=== PATIENT | female | born 1950 | race Caucasian/White ===

== ENCOUNTER → 2017-05-02 | Outpatient (CLI) | payer MEDICARE, BC ==
[2014-10-09 14:59] VITALS: BP 148/84
--- NOTE | 2017-05-02 10:22 | RAD ---
DATE: 05/02/2017 EXAM: MAMMO SILVER SCREENING BILATERAL HISTORY: Routine screening COMPARISON: 2015 The breast parenchyma shows scattered fibroglandular densities. Breast parenchyma level B. FINDINGS: 2-D and 3-D tomosynthesis imaging was performed in CC and MLO projections. No new or enlarging breast densities are seen. A benign-appearing lymph node type densities again noted in the axillary tail region of the right breast. Minimal benign type calcifications are present. No suspicious microcalcifications have developed. IMPRESSION: Stable mammograms without evidence of malignancy. BI-RADS CATEGORY: 2 BENIGN FINDING(S) RECOMMENDED FOLLOW-UP: 12M 12 MONTH FOLLOW-UP PQRS compliance statement: Patient information was entered into a reminder system with a target due date for the next mammogram. Mammography is a sensitive method for finding small breast cancers, but it does not detect them all and is not a substitute for careful clinical examination. A negative mammogram does not negate a clinically suspicious finding and should not result in delay in biopsying a clinically suspicious abnormality. "Our facility is accredited by the [employer] Mammography [employer]."
== END | disposition home or self-care (01) ==
LOC: KCIC MAMMO 07:47
PROVIDERS: ATTEND Obstetrics & Gynecology
DX: Z12.31 Encounter for screening mammogram for malignant neoplasm of breast (principal)
CPT/HCPCS: 77063; G0202; 77067

== ENCOUNTER → 2019-05-19 | Outpatient (CLI) | payer MEDICARE, BC ==
[2014-10-09 14:59] VITALS: BP 148/84
--- NOTE | 2019-05-19 14:05 | KCIC ---
EXAM: Bilateral digital screening mammogram with tomosynthesis. HISTORY: 68-year-old female presents for screening mammography. TECHNIQUE: Full-field digital craniocaudal and mediolateral oblique 2D and 3D tomosynthesis images of both breasts are obtained for evaluation. Computer aided detection with [employer] MedD software version 9.3 was applied. COMPARISON: 05/17/2018 and 05/02/2017 BREAST PARENCHYMAL DENSITY: Level B - Scattered fibroglandular densities. FINDINGS: There is no new suspicious mass, microcalcification or region of architectural distortion. IMPRESSION: BI-RADS Category 2: Benign finding(s). RECOMMENDATION: Annual mammography is recommended. If your mammogram demonstrates that you have dense breast tissue, which could hide abnormalities, and if you have other risk factors for breast cancer that have been identified, you might benefit from supplemental screening tests that may be suggested by your ordering physician. Dense breast tissue, in and of itself, is a relatively common condition. This information is not provided to cause undue concern, but rather to raise your awareness and to promote discussion with your physician regarding the presence of other risk factors, in addition to dense breast tissue. A report of your mammography results will be sent to you and your physician. You should contact your physician if you have any questions or concerns regarding this report. Mammography is a sensitive method for finding small breast cancers, but it does not detect them all and is not a substitute for careful clinical examination. A negative mammogram does not negate a clinically suspicious finding and should not result in delay in biopsying a clinically suspicious abnormality. PQRS compliance statement - Patient information was entered into a reminder system with a target due date for the next mammogram. "Our facility is accredited by the [employer] Mammography [employer]." Electronically signed by: Vandana Corona MD (05/19/2019 2:02 PM) [facility]
== END | disposition home or self-care (01) ==
LOC: KCIC MAMMO 11:10
PROVIDERS: ATTEND Obstetrics & Gynecology
DX: Z12.31 Encounter for screening mammogram for malignant neoplasm of breast (principal)
CPT/HCPCS: 77063; 77067

== ENCOUNTER 2019-08-29 21:25 | Emergency (ER) | payer MEDICARE, BC ==
[~2019-08-29] VITALS: Ht 154.9 cm; Wt 108.9 kg
[2019-08-29 21:45] VITALS: BP 182/89
--- NOTE | 2019-08-29 22:02 | PHYS DOC ---
Past Medical History Past Medical History: Asthma, High Cholesterol, Hypertension (VERONICA CORBETT APRN) Past Surgical History: Tonsillectomy (VERONICA CORBETT APRN) Alcohol Use: None Drug Use: None (VERONICA CORBETT APRN) Adult General Chief Complaint Chief Complaint: SORE THROAT HPI HPI Patient is a 68 year old female who presents with nasal drainage, dry throat, sore throat, dry cough since Sunday. Patient denies any pain at this time. Patient states she's been using cough syrup and a saline nasal spray. She does have a history of asthma and does have inhalers but does not have a nebulizer at home. She states that she feels like the illness has moved down into her chest. She states she does not have chest pain or chest tightness or shortness of breath. (VERONICA CORBETT APRN) Review of Systems Review of Systems HENT: nasal congestion or sore throat [] Respiratory: cough or denies shortness of breath [] All other systems were reviewed and found to be within normal limits, except as documented in this note. (VERONICA CORBETT APRN) Current Medications Current Medications Current Medications Medications (Trade) Dose Ordered Sig/Elver Start Time Stop Time Status Last Admin Dose Admin Prednisone (Prednisone) 50 mg 1X ONCE 08/29/19 22:15 08/29/19 22:16 DC 08/29/19 22:16 50 MG (JOHN MOREIRA DO) Allergies Allergies Allergies Coded Allergies Type Severity Reaction Last Updated Verified azithromycin Allergy Intermediate 10/09/14 Yes (JOHN MOREIRA DO) Physical Exam Physical Exam Constitutional: Well developed, well nourished, no acute distress, non-toxic appearance. [] HENT: Normocephalic, atraumatic, bilateral external ears normal, oropharynx moist, no oral exudates, nose normal. Post nasal drip. [] Eyes: PERRLA, EOMI, conjunctiva normal, no discharge. [] Neck: Normal range of motion, no tenderness, supple, no stridor. [] Cardiovascular:Heart rate regular rhythm, no murmur [] Lungs & Thorax: Bilateral upper breath sounds clear and diminished in lower lobes to auscultation [] Abdomen: Bowel sounds normal, soft, no tenderness, no masses, no pulsatile masses. [] Skin: Warm, dry, no erythema, no rash. [] Back: No tenderness, no CVA tenderness. [] Extremities: No tenderness, no cyanosis, no clubbing, ROM intact, no edema. [] Neurologic: Alert and oriented X 3, normal motor function, normal sensory function, no focal deficits noted. [] Psychologic: Affect normal, judgement normal, mood normal. [] (VERONICA CORBETT APRN) Current Patient Data Vital Signs Vital Signs Date Time Temp Pulse Resp B/P (MAP) Pulse Ox O2 Delivery O2 Flow Rate FiO2 08/29/19 21:45 98.8 96 22 182/89 (120) 95 Room Air 98.8 (JOHN MOREIRA DO) Lab Values Laboratory Tests Test 08/29/19 22:05 Influenza Type A Antigen Negative (NEGATIVE) Influenza Type B Antigen Negative (NEGATIVE) (JOHN MOREIRA DO) EKG EKG [] (VERONICA CORBETT APRN) Radiology/Procedures Radiology/Procedures [] (VERONICA CORBETT APRN) Course & Med Decision Making Course & Med Decision Making Lungs are clear in upper lobes and diminished in lower lobes. Bilateral tympanic side pearly white. Throat is pink without swelling or exudates and there is postnasal drip. Skin pink warm and dry. Speaks in full clear sentences. A mbulatory with a steady gait. Patient denies chest pain, shortness of breath, abdominal pain, nausea, vomiting, diarrhea, fever, dizziness, headache, LOC, weakness, numbness or tingling, visual changes. Chest xray read by Dr Moreira by no acute findings. (VERONICA CORBETT APRN) Dragon Disclaimer Dragon Disclaimer This electronic medical record was generated, in whole or in part, using a voice recognition dictation system. (VERONICA CORBETT APRN) Departure Departure Impression: Primary Impression: Sore throat Additional Impressions: Cough Nasal congestion Disposition: 01 HOME, SELF-CARE Condition: STABLE Referrals: JOHN ASHTON MD (PCP) Patient Instructions: Cough, Adult, Sore Throat Additional Instructions: Follow up with primary care provider. Take medications as prescribed. Take Tylenol for pain or fever. Drink plenty of fluids. Scripts Benzonatate (TESSALON PERLE) 100 Mg Capsule 1 CAP PO TID, #30 CAP Prov: VERONICA CORBETT GERMÁN 08/29/19 Methylprednisolone (MEDROL) 4 Mg Tab.ds.pk 1 PKG PO UD, #1 PKG Prov: VERONICA CORBETT [employer] 08/29/19 Doxycycline Hyclate (DOXYCYCLINE HYCLATE) 100 Mg Capsule 1 CAP PO BID for 10 Days, #20 CAP Prov: VERONICA CORBETT [employer] SPECIALIST 08/29/19 Attending Signature Attending Signature I have reviewed the PA/CRIMINALIST TECHNICIAN's note and plan of care. I was available for consultation as needed during the patient's visit in the emergency department. I agree with the clinical impression, plan, and disposition. (JOHN MOREIRA DO) Problem Qualifiers HUMAIRATEVIN BRYANTMEHDI Hayden APRN Aug 29, 2019 22:02 JOHN MOREIRA DO Aug 30, 2019 01:06
[2019-08-29] MEDS ORDERED: predniSONE 10 MG TABLET PO ONE (22:15)
[2019-08-29 22:32] LABS: INFLUENZA A PATIENT NEGATIVE (NEGATIVE); INFLUENZA B PATIENT NEGATIVE (NEGATIVE)
[2019-08-29] MEDS ORDERED: BENZ100C PO (22:33)
[2019-08-29] MEDS ORDERED: DOXY100C2 PO (22:33)
[2019-08-29] MEDS ORDERED: METH4TAB2 PO (22:33)
--- NOTE | 2019-08-30 03:33 | RAD ---
CHEST PA LATERAL INDICATION: Cough. COMPARISON STUDY: 10/08/2014. FINDINGS: Lungs: Normal lung volume. No pulmonary mass or consolidation. The tracheobronchial tree and hilar structures are normal. Pleura: No pleural effusion or pneumothorax. Heart and Mediastinum: The cardiomediastinal silhouette is normal. The great vessels of the thorax are normal. Bones and Soft Tissues: Degenerative changes of the spine. IMPRESSION: No acute cardiopulmonary process. Electronically signed by: Eliud Reynolds MD (08/30/2019 3:30 AM) [facility]
== END 2019-08-29 22:44 | disposition home or self-care (01) ==
LOC: ER 21:25
DX: J02.9 Acute pharyngitis, unspecified (principal); R05 Cough; R09.81 Nasal congestion; I10 Essential (primary) hypertension; E78.00 Pure hypercholesterolemia, unspecified; J45.909 Unspecified asthma, uncomplicated; Z88.1 Allergy status to other antibiotic agents
CPT/HCPCS: 71046; 87804; 99285; J7512

== ENCOUNTER → 2020-06-23 | Outpatient (CLI) | payer MEDICARE, BC ==
[~2020-06-23] MED LIST: BENZ100C PO; DOXY100C2 PO; METH4TAB2 PO
--- NOTE | 2020-06-23 11:48 | KCIC ---
Bilateral digital screening mammograms with 3-D tomosynthesis: Reason for examination: Routine screening. Comparison is made to previous studies dated back to 04/28/2015. Bilateral mammograms in CC and oblique projections were obtained with 2-D imaging and 3-D tomosynthesis imaging on a [employer] Inspiration unit and reviewed on the workstation. Interpretation was made with the benefit of CAD. The skin and nipples show no abnormalities. No abnormal axillary lymph nodes are seen. The breast parenchyma is predominantly fatty. (Breast density: Category A.) There continues to be a small focus of parenchymal asymmetry at the 2:00 B position of the left breast which is unchanged. There are no new dominant masses, suspicious calcifications or architectural distortion. Impression: No evidence of malignancy. Recommend routine screening. BI-RAD Category 2: Benign. "Our facility is accredited by the [employer] Mammography Program." This patient's information has been entered into a reminder system for the patient to be notified with the results of her examination and a target date for the next mammogram. Electronically signed by: Charmaine Whipple MD (06/23/2020 11:45 AM) [id number]
== END ==
LOC: KCIC MAMMO 09:44
PROVIDERS: ATTEND Obstetrics & Gynecology
DX: Z12.31 Encounter for screening mammogram for malignant neoplasm of breast (principal)
CPT/HCPCS: 77063; 77067

== ENCOUNTER → 2020-11-04 | Outpatient (CLI) | payer MEDICARE, BC ==
[~2020-11-04] MED LIST changes: +REGADENOSON 0.4 MG/5 ML DISP.SYRIN. IV ONE
--- NOTE | 2020-11-05 14:35 | RAD ---
MR#: [id number] Date of Study: 11/05/2020 Ordering Physician: OLIVIA JONAS, Referring Physician: HOLLIE STACY Tech: TAYLOR Ruelas, ARRT (R) (N) APPROVED REPORT Test Type: Pharmacological Stress Nurse/Tech: Dayne Pérez RN Test Indications: Chest Pain Cardiac History: HTN, High Cholesterol, See EMR. Medications: See EMR. Medical History: Asthma, See EMR. Resting ECG: SR Resting Heart Rate: 73 bpm Resting Blood Pressure: 162/76mmHg Pretest Chest Pain: No chest pain Nurse/Tech Notes Lungs CTA, Heart tones regular. Consent: The procedure was explained to the patient in lay terms. Informed consent was witnessed. Jose D eout was entered into [employer]. History and Stress Test performed by RT Sammy (R) (N) Pharm. Details Pharmacologic stress testing was performed using 0.4mg per 5ml of regadenoson given intravenously ove r 7-10 seconds. Stress Symptoms No chest pain or symptoms. POST EXERCISE Reason for Termination: Infusion complete Max HR: 97 bpm Max Blood Pressure: 180/73mmHg Blood Pressure response to exercise: Normal blood pressure response during stress. Heart Rate response to exercise: WNL Chest Pain: No. Arrhythmia: No. ST Change: No. INTERPRETATION Stress EKG Conclusion: Baseline EKG showed sinus rhythm. No ischemic changes at peak stress. No arr hythmias. Imaging Protocol IMAGE PROTOCOL: Rest Tc-99m/stress Tc-99m 2 days Rest: Stress: Viability: Radiopharm.Tc99m WjiqbrlstAx22u Sestamibi Phlx55rCg 31.6mCi Img Date 11/04/2020 11/05/2020 Inj-Img Xgkz27mir. 60min. Rest Admin Site:IV - Left HandAdministrator:TAYLOR Ruelas, ARRMateo (R)(N) Stress Admin Site: IV - Right HandAdministrator: RT Ra Christianson)(N) STRESS DATA End Diast. Vol.71.0mlAv. Heart Rate82.0bpm End Syst. Vol.6.0mlCO Index BSA0.0L/min Myocardial Ocvv380.0gEject. Iadsduce33.0% Stress Rates Pk. Fill Rate3.21EDV/secLVtime Pk. Fill 134.58msec Pk. Empty Rate5.18ESV/secLVtime Pk. Duxnl403.25msec 1/3 Pk. Fill1.99EDV/sec Stress Scores Regional WT0.00Summed WT0.00 Regional WM0.00Summed WM0.00 Study quality was good. Left Ventricular size was Normal at Rest and Stress. Lung uptake was . Left Ventricular ejection fraction is 88%. The rest and stress images show normal perfusion, normal contraction and thickening. LV Perf. Quant 17 Seg. SSS0.00 17 Seg. SRS0.00 17 Seg. SDS0.00 Stress Defect Extent (% LAD)0.00Rest Defect Extent (% LAD)0.00Rev. Defect Extent (% LAD)0.00 Stress Defect Extent (% LCX) 0.00Rest Defect Extent (% LCX)0.00Rev. Defect Extent (% LCX)0.00 Stress Defect Extent (% RCA)0.00Rest Defect Extent (% RCA)0.00Rev. Defect Extent (% RCA)0.00 Stress Defect Extent (% SELAM)0.00Rest Defect Extent (% SELAM)0.00Rev. Defect Extent (% SELAM)0.00 Conclusion 1. Regadenoson cardioisotope stress test did not show any evidence of ischemia or infarct. 2. Normal left ventricular systolic function with ejection fraction calculated at 88%. 3. Low risk for cardiac events. Signed by : Luís Craft, Electronically Approved : 11/05/2020 14:34:40
--- NOTE | 2020-11-05 14:41 | CARD ---
MR#: [id number] Date of Study: 11/05/2020 Ordering Physician: OLIVIA JONAS, Referring Physician: OLIVIA JONAS, Tech: Viktoria Graham [facility] APPROVED REPORT EXAM: Two-dimensional and M-mode echocardiogram with Doppler and color Doppler. Other Information Quality : AverageHR: 78bpm Rhythm : NSR INDICATION Dyspnea 2D DIMENSIONS RVDd2.9 (2.9-3.5cm)Left Atrium(2D)4.1 (1.6-4.0cm) IVSd1.0 (0.7-1.1cm)Aortic Root(2D)3.1 (2.0-3.7cm) LVDd4.4 (3.9-5.9cm)LVOT Diameter1.9 (1.8-2.4cm) PWd1.1 (0.7-1.1cm)LVDs1.7 (2.5-4.0cm) FS (%) 62.2 %SV79.6 ml Aortic Valve AoV Peak Gage.197.6cm/sAoV VTI43.6cm AO Peak GR.15.6mmHgLVOT Peak Gage.130.0cm/s AO Mean GR.7mmHgAVA (VMAX)1.89cm2 Mitral Valve MV E Zfgqkeky91.4cm/sMV DECEL KHXD690qh MV A Gphdoxir198.3cm/sE/A Ratio0.6 Pulmonary Valve PV Peak Syjpqztg524.0cm/s Pulmonary Vein S1 Zwyatvwd711.2cm/sD2 Vhorodjd89.9cm/s PVa nvaepboh254lwcv LEFT VENTRICLE The left ventricle is normal size. There is normal left ventricular wall thickness. The left ventricu lar systolic function is normal. The ejection fraction is 70%. There is normal LV segmental wall alonzo on. Transmitral Doppler flow pattern is Grade I-abnormal relaxation pattern. RIGHT VENTRICLE The right ventricle is normal size. There is normal right ventricular wall thickness. The right ventr icular systolic function is normal. ATRIA The left atrium size is normal. The right atrium size is normal. The interatrial septum is intact wit h no evidence for an atrial septal defect or patent foramen ovale as noted on 2-D or Doppler imaging. AORTIC VALVE The aortic valve is normal in structure and function. Doppler and Color Flow revealed no significant aortic regurgitation. There is no significant aortic valvular stenosis. MITRAL VALVE The mitral valve is normal in structure and function. There is no evidence of mitral valve prolapse. There is no mitral valve stenosis. Doppler and Color Flow revealed no mitral valve regurgitation note d. TRICUSPID VALVE The tricuspid valve is normal in structure and function. Doppler and Color Flow revealed no tricuspid valve regurgitation noted. There is no tricuspid valve stenosis. PULMONIC VALVE The pulmonary valve is normal in structure and function. Doppler and Color Flow revealed no pulmonic valvular regurgitation. GREAT VESSELS The aortic root is normal in size. The ascending aorta is normal in size. The IVC is normal in size a nd collapses >50% with inspiration. PERICARDIAL EFFUSION There is no evidence of significant pericardial effusion. Critical Notification Critical Value: No <Conclusion> The left ventricular systolic function is normal. The ejection fraction is 70%. There is normal LV segmental wall motion. Transmitral Doppler flow pattern is Grade I-abnormal relaxation pattern. There is no evidence of significant pericardial effusion. Signed by : Luís Craft, Electronically Approved : 11/05/2020 14:40:46
== END ==
LOC: NM 09:46
PROVIDERS: ATTEND Internal Medicine Cardiovascular Disease
DX: R07.9 Chest pain, unspecified (principal); I10 Essential (primary) hypertension
CPT/HCPCS: 78452; A9500; 93017; 93306; J2785

== ENCOUNTER → 2021-07-18 | Outpatient (CLI) | payer MEDICARE, BC ==
[~2021-07-18] MED LIST changes: -DOXY100C2 PO; +DOXY100C3 PO; -REGADENOSON 0.4 MG/5 ML DISP.SYRIN. IV ONE
--- NOTE | 2021-07-18 12:12 | KCIC ---
Bilateral digital screening mammograms with 3-D tomosynthesis: Reason for examination: Routine screening. Comparison is made to previous studies dated back to 04/28/2015. Bilateral mammograms in CC and oblique projections were obtained with 2-D imaging and 3-D tomosynthes is imaging on a [employer] Inspiration unit and reviewed on the workstation. Interpretation was made wit h the benefit of CAD. The skin and nipples show no abnormalities. No abnormal axillary lymph nodes are seen. The breast par enchyma shows scattered fatty and fibroglandular density. (Breast density: Category B.) There are no dominant masses, suspicious calcifications or architectural distortion. Impression: No evidence of malignancy. Recommend routine screening. BI-RAD Category 1: Negative. "Our facility is accredited by the [employer] Mammography [employer]." This patient's information has been entered into a reminder system for the patient to be notified wit h the results of her examination and a target date for the next mammogram. Electronically signed by: Charmaine Whipple MD (07/18/2021 12:10 PM) [id number]
--- NOTE | 2021-07-18 14:01 | KCIC ---
INDICATION: Screening for osteopenia/osteoporosis. Reason: OSTEOPENIA, POST MENOPAUSAL / Spl. Instru ctions: / History: COMPARISON: April 2015 TECHNIQUE: Bone densitometry was performed through the lumbar spine and proximal femur. IMPRESSION: Lumbar Spine: BMD: 1.25 T-Score: 1.8 Range: Normal. Increased by 1 percent from prior. Proximal Femur: BMD: 0.93 T-Score: -0.1 Range: Normal. Increased by 6 percent from prior. World Health Organization Criteria for Bone Density: T-Score: > -1.0: Normal Range < -1.0 to -2.5: Osteopenic Range < -2.5: Osteoporotic Range Electronically signed by: Dave Gayle MD (07/18/2021 1:58 PM) [id number]
== END ==
LOC: KCIC MAMMO 10:53
PROVIDERS: ATTEND Obstetrics & Gynecology
DX: Z12.31 Encounter for screening mammogram for malignant neoplasm of breast (principal); M85.88 Other specified disorders of bone density and structure, other site; Z78.0 Asymptomatic menopausal state
CPT/HCPCS: 77063; 77067; 77080

== ENCOUNTER → 2022-01-16 | Day surgery (SDC) | payer MEDICARE, BC ==
[~2022-01-16] VITALS: Ht 154.9 cm; Wt 48.0 kg
[~2022-01-16] MED LIST changes: +ALBU2.5V8 IH; +ALEN35TA47 PO; +FLUT12AE IH; +HYDROmorphone 2 MG/ML INJ. IVP PRN; +IV RINGERS,LACTATED 1000ML 1,000 ML IV SCH; +LIDOCAINE 2% PF 5 ML VIAL. ONE; +LOSA1TAB19 PO; +MORPHINE SULFATE 2 MG/ML INJ. IVP PRN; +PANT40TA77 PO; +PROCHLORPERAZINE 10 MG/2 ML VIAL. IVP PRN; +PROPOFOL 10 MG/ML (20ML) VIAL. IV ONE; +SIMV20TA18 PO; +fentaNYL PF VIAL 100 MCG/2 ML VIAL IVP PRN
[2022-01-16 12:34] VITALS: BP 170/72
--- NOTE | 2022-01-16 13:50 | PDOC1 ---
History and Physical Date of Admission Date of Admission DATE: 01/16/22 TIME: 13:44 Identification/Chief Complaint Chief Complaint Chronic heartburn; r/o Esparza's Source Source: Chart review, Patient History of Present Illness History of Present Illness 71 y/o female with chronic heartburn. On PPI, but no prior EGD. Here for endoscopy to r/o Esparza's. Normal colonoscopy 2012 and no LGI symptoms. No GB, liver or pancreatic history. Recent CT with maybe something in GB, not borne out at sonogram. Past Medical History Cardiovascular: HTN, Hyperlipidemia Pulmonary: Asthma Musculoskeletal: Osteoarthritis Endocrine: Osteoporosis Past Surgical History Past Surgical History: Tonsillectomy, Other (joint replacement) Family History Family History: Cancer (breast/sister), Diabetes Social History Smoke: No ALCOHOL: none Drugs: None Current Medications Current Medications Current Medications Fentanyl Citrate (Fentanyl 2ml Vial) 25 mcg PRN Q5MIN PRN IVP MILD PAIN 1-3; Start 01/16/22 at 06:00; Stop 01/17/22 at 05:59 Fentanyl Citrate (Fentanyl 2ml Vial) 50 mcg PRN Q5MIN PRN IVP MODERATE PAIN 4- 6; Start 01/16/22 at 06:00; Stop 01/17/22 at 05:59 Morphine Sulfate (Morphine Sulfate) 1 mg PRN Q10MIN PRN IVP SEVERE PAIN 7-10; Start 01/16/22 at 06:00; Stop 01/17/22 at 05:59 Ringer's Solution 1,000 ml @ 30 mls/hr Q24H IV Last administered on 01/16/22at 12:51; Start 01/16/22 at 06:00; Stop 01/16/22 at 17:59 Hydromorphone HCl (Dilaudid) 0.5 mg PRN Q10MIN PRN IVP SEVERE PAIN 7-10, 2nd CHOICE; Start 01/16/22 at 06:00; Stop 01/17/22 at 05:59 Prochlorperazine Edisylate (Compazine) 5 mg PACU PRN PRN IVP NAUSEA, MRX1; Start 01/16/22 at 06:00; Stop 01/17/22 at 05:59 Lidocaine HCl (Lidocaine Pf 2% Vial) 5 ml STK-MED ONCE .ROUTE ; Start 01/16/22 at 13:38; Stop 01/16/22 at 13:38; Status DC Propofol (Diprivan) 200 mg STK-MED ONCE IV ; Start 01/16/22 at 13:39; Stop 01/16/22 at 13:39; Status DC Active Scripts Active Reported Proair Hfa (Albuterol Sulfate) 8.5 Gm Hfa.aer.ad 2 Puff IH PRN Q4-6HRS PRN 21 Days Alendronate Sodium 35 Mg Tablet 35 Mg PO WEEKLY Protonix (Pantoprazole Sodium) 40 Mg Tablet.dr 40 Mg PO DAILYAC Losartan-Hctz 50-12.5 Mg Tab (Losartan/Hydrochlorothiazide) 1 Each Tablet 1 Each PO DAILY Simvastatin 20 Mg Tablet 20 Mg PO HS Flovent 110MCG Hfa (Fluticasone Propionate) 12 Gm Aer.w.adap 2 Puff IH BID Allergies Allergies: Coded Allergies: azithromycin (Verified Allergy, Intermediate, 01/16/22) ROS Review of System Otherwise negative. Physical Exam General: Alert, Oriented X3, Cooperative, No acute distress HEENT: Atraumatic Lungs: Clear to auscultation Heart: S1S2, RRR, no gallops, no murmurs Abdomen: Normal bowel sounds, Soft, No tenderness, No hepatosplenomegaly, No masses Rectal Exam: not examined Extremities: No cyanosis, No edema Skin: No significant lesion Neuro: Normal speech, Strength at 5/5 X4 ext, Normal tone, Sensation intact, Cranial nerves 3-12 NL, Reflexes 2+ Psych/Mental Status: Mental status NL, Mood NL Vitals Vitals Vital Signs Date Time Temp Pulse Resp B/P (MAP) Pulse Ox O2 Delivery O2 Flow Rate FiO2 01/16/22 12:34 98.0 76 20 96 98.0 VTE Prophylaxis Ordered VTE Prophylaxis Devices: No VTE Pharmacological Prophylaxi: No Assessment/Plan Assessment/Plan IMP: Chronic heartburn, r/o Esparza's. PLAN: EGD. JOHN MONDRAGON MD January 16, 2022 13:50
--- NOTE | 2022-01-16 14:01 | PDOC4 ---
PROCEDURE Procedure EGD Indication: Chronic heartburn; r/o Esparza's. Meds: per anesthesia Findings: E--Healed reflux at 35 cm. No Esparza's. G--Small HH. FGP's in body. D--Normal to second portion. Matthew. well. IMP: Healed GERD Small HH. Fundic gland polyps; benign and with no bad potential. REC: Resume home meds and diet. January f/u with me prn. JOHN MONDRAGON MD January 16, 2022 14:01
[2022-01-16 14:26] VITALS: BP 112/56
== END | disposition home or self-care (01) ==
LOC: SURG 12:20
PROVIDERS: ATTEND Internal Medicine Gastroenterology
DX: R12 Heartburn (principal); K21.00 Gastro-esophageal reflux disease with esophagitis, without bleeding; K31.7 Polyp of stomach and duodenum; K31.89 Other diseases of stomach and duodenum; I10 Essential (primary) hypertension; E78.00 Pure hypercholesterolemia, unspecified; J45.909 Unspecified asthma, uncomplicated; M19.90 Unspecified osteoarthritis, unspecified site; Z79.899 Other long term (current) drug therapy; Z98.890 Other specified postprocedural states; Z88.1 Allergy status to other antibiotic agents
CPT/HCPCS: 43235; J2704